=== PATIENT | female | born 1985 ===

== ENCOUNTER 2019-07-13 14:12 | Emergency (ER) | payer SELFPAY ==
--- NOTE | 2019-07-13 14:34 | Emergency Department Report ---
Blank Doc - Documentation Documentation: This is a 33-year-old female that presents with hallucinating and paranoid. D enies Si/HI. This initial assessment/diagnostic orders/clinical plan/treatment(s) is/are subject to change based on patient's health status, clinical progression and re- assessment by fellow clinical providers in the ED. Further treatment and workup at subsequent clinical providers discretion. Patient/guardians urged not to elope from the ED as their condition may be serious if not clinically assessed and managed. Initial orders include: 1- Patient sent to MAIN ED for further evaluation and treatment 2- university administrator was notified to have patient be brought back [facility]. 3- RN was notified to keep patient as close range and observation until room available 4- Patient presents with substantial risk of imminent harm to self, appears to be so unable to care for his/her own physical health and safety as to create an imminently life-endangering crisis, and has committed/expressed life endangering crisis to self. Due to this and other complaints, patient is put on psych hold.
[2019-07-13 15:44] LABS: Basophils % (Auto) 0.8 % (0.0-1.8); Eosinophils % (Auto) 0.5 % (0.0-4.3); Hematocrit 43.4 % (30.3-42.9); Hemoglobin 14.6 gm/dl (10.1-14.3); Lymphocytes # (Auto) 1.5 K/mm3 (1.2-5.4); Lymphocytes % (Auto) 23.2 % (13.4-35.0); Mean Corpuscular HGB Conc 34 % (30-34); Mean Corpuscular Volume 92 fl (79-97); Monocytes # (Auto) 0.6 K/mm3 (0.0-0.8); Platelet Count 304 K/mm3 (140-440); Red Blood Count 4.74 M/mm3 (3.65-5.03); Red Cell Distribution Width 13.5 % (13.2-15.2)
[2019-07-13 16:02] LABS: Alanine Aminotransferase 57 units/L (7-56); Albumin 4.9 g/dL (3.9-5); BUN/Creatinine Ratio 16; Blood Urea Nitrogen 11 mg/dL (7-17); Calcium 9.4 mg/dL (8.4-10.2); Hemolysis Index 44
[2019-07-13] MEDS ORDERED: ALPRAZolam 1 MG TAB PO ONE (20:03)
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
[2019-07-13 20:32] LABS: Bilirubin,Urine NEG (Negative); Blood,Urine SM (Negative); Color,Urine Yellow (Yellow); Urobilinogen,Urine < 2.0 mg/dL (<2.0)
[2019-07-13 20:42] LABS: Amphetamine Screen,Urine PRESUMPTIVE NEGATIVE; Benzodiazepines Screen,Urine PRESUMPTIVE NEGATIVE; Cannabinoid Screen,Urine PRESUMPTIVE NEGATIVE; Cocaine Screen,Urine PRESUMPTIVE NEGATIVE; Methadone Screen,Urine PRESUMPTIVE NEGATIVE; Opiate Screen,Urine PRESUMPTIVE NEGATIVE
[2019-07-13] MEDS ORDERED: cloNIDine 0.1 MG TAB PO ONE (20:58)
[2019-07-14] MEDS ORDERED: ALPRAZolam 1 MG TAB PO ONE (03:04)
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
[2019-07-14] MEDS ORDERED: ZIPRASIDONE MESYLATE 20 MG VIAL IM PRN (13:34)
[2019-07-14] MEDS ORDERED: EFFEXOR 150 MG PO SCH (13:45)
[2019-07-14] MEDS: QUEtiapine 25 MG TAB PO SCH ×2 (14:33→22:24)
[2019-07-14] MEDS ORDERED: DOXEPIN 10 MG CAP PO SCH (22:00)
[2019-07-14] MEDS: VENLAFAXINE XR 75 MG CAP PO SCH (22:27)
[2019-07-14] MEDS ORDERED: WATER FOR INJ Sterile (PF) 10 ML ONE (23:58)
[2019-07-15] MEDS: QUEtiapine 25 MG TAB PO SCH ×2 (10:26→22:30)
[2019-07-15] MEDS: VENLAFAXINE XR 75 MG CAP PO SCH ×2 (10:26→22:27)
--- NOTE | 2019-07-15 11:08 | Progress Note ---
Subjective - Reason for Consult Consult date: 07/15/19 Reason for consult: paranoia - Chief Complaint Chief complaint: The patient's medical record was reviewed and the patient's progress discussed with the nursing staff. The nurse note states the patient became agitated and increasingly more paranoid despite reorienting and attempting verbal de- escalation. The nurse caring for the patient today, states the patient has been ampted up and needed something to calm her down. During my interview today, the patient is standing in her room. She is dressed appropriately. She makes good eye contact. She smiles inappropriately. She is talkative. She appears anxious. She says she's "much better" that she "saw her family." The patient says "I'm afraid for my family's safety," when asked how was she feeling. She starts talking about Labor and delivery, saying "that's where I had my children." She says "I drove myself there when I came in." She then starts telling of her "grandfather drove to this country from [place]." The patient is raising up her shirt sleeve to show me her injection site. She says "the nurse wouldn't believe me. I was trying to tell them my family was in danger." She says "I then started saying God, God" She is raising her hands up as she's speaking. She then begins talking about never missing work and telling her coworker she needed a day off. She denies SI/HI or hallucinations of any kind. ROS: Constitutional: Negative for weight loss ENT: Negative for stridor Respiratory: Negative for cough or hemoptysis All other systems reviewed and are negative MENTAL STATUS General Appearance: Dressed appropriately Behavior: cooperative, good eye contact Mood: "much better, afraid" Affect: Smiles inappropriately Thought Process: flight of ideas Speech: Increased pace Suicidal Ideation: Denies Homicidal Ideation: Denies Hallucinations: Denies Delusions: Paranoia Insight and Judgment: Limited Memory/Cognition: Fair Diagnoses: Schizoaffective Disorder Plan Vistaril 25mg po BID for anxiety Increased Doxepin 25mg po qhs Increased Seroquel 50mg po BID Medical: Per primary Sitter: Defer to primary Disposition: The patient meets the requirement for acute hospitalization at this time. She may transfer to an acute psychiatric facility once medically cleared. The patient and her mother verbalize understanding and agreement of treatment plan and medications. Will continue to follow until the patient is transferred or her condition improves. Please call with any questions or concerns. Thank you for this consult. Mental Status Exam - Vital signs Last Vital Signs Temp 98.3 F 07/15/19 09:00 Pulse 110 H 07/15/19 09:00 Resp 18 07/15/19 09:00 BP 127/85 07/15/19 09:00 Pulse Ox 99 07/15/19 09:00
[2019-07-15] MEDS ORDERED: DOXEPIN 10 MG CAP PO SCH (11:24)
[2019-07-15] MEDS: hydrOXYzine PAMOATE 25 MG CAP PO SCH ×2 (12:34→22:34)
[2019-07-15] MEDS: DOXEPIN 25 MG CAP PO SCH (22:32)
[2019-07-16] MEDS: VENLAFAXINE XR 75 MG CAP PO SCH ×2 (10:12→22:05)
[2019-07-16] MEDS: hydrOXYzine PAMOATE 25 MG CAP PO SCH ×2 (10:12→21:46)
[2019-07-16] MEDS: QUEtiapine 25 MG TAB PO SCH (10:12)
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
[2019-07-16] MEDS: risperiDONE 1 MG TAB PO SCH ×2 (14:01→21:45)
[2019-07-16] MEDS: DOXEPIN 25 MG CAP PO SCH (22:03)
[2019-07-17] MEDS: risperiDONE 1 MG TAB PO SCH ×2 (10:33→22:31)
[2019-07-17] MEDS: VENLAFAXINE XR 75 MG CAP PO SCH ×2 (10:33→22:56)
[2019-07-17] MEDS: hydrOXYzine PAMOATE 25 MG CAP PO SCH ×2 (10:34→22:31)
--- NOTE | 2019-07-17 12:04 | Progress Note ---
Subjective - Reason for Consult Consult date: 07/17/19 Reason for consult: parania, delusional - Chief Complaint Chief complaint: The patient's medical record was reviewed and the patient's progress discussed with the nursing staff. The nurse note states the patient stated, "I have no sleep, because I don't trust anyone." The nurse caring for the patient states the patient has been more calm today and that she hasn't had to medicate her. During my interview today, the patient is standing in her room. She is peering out in the hallway. She's a/o x 3. She's smiling inappropriately. She is paranoid. She says she's doing "good." She says she "slept good." She then says, "I slept good because I knew the ina better than I know my ." When asking what ina she was referring to, the patient replied, "the one in my dreams." She starts talking about the [facility], in which she states she "gave to her children." The patient has been ruminating over this since her admission. She is showing me her Bible, in which she has several papers, wrappings, and notes shoved in it. She also has a sack where she is keeping all the snacks given to her in the hospital. She is pulling out items showing them to me. She states "just so you will believe me. They are giving me all of this stuff. I'm keeping it for proof. I don't trust people." She starts talking about being "from [place], people know me. They don't know me here. This is Cristela." She denies SI/HI, stating, "I never was." She denies hallucinations of any kind. ROS: Constitutional: Negative for weight loss ENT: Negative for stridor Respiratory: Negative for cough or hemoptysis All other systems reviewed and are negative MENTAL STATUS General Appearance: Dressed appropriately Behavior: cooperative, good eye contact Mood: "good" Affect: Smiles inappropriately Thought Process: flight of ideas, ruminative Speech: Increased pace Suicidal Ideation: Denies Homicidal Ideation: Denies Hallucinations: Denies Delusions: Paranoia Insight and Judgment: Impaired Memory/Cognition: Fair Diagnoses: Schizoaffective Disorder Plan Increased Risperidone 2mg po BID Cogentin 0.5mg po daily Medical: Per primary Sitter: Defer to primary Disposition: The patient meets the requirement for acute hospitalization at this time. She may transfer to an acute psychiatric facility once medically cleared. The patient and her mother verbalize understanding and agreement of treatment plan and medications. Will continue to follow until the patient is transferred or her condition improves. Please call with any questions or concerns. Thank you for this consult. Mental Status Exam - Vital signs Last Vital Signs Temp 98.3 F 07/17/19 07:47 Pulse 100 H 07/17/19 07:47 Resp 18 07/17/19 08:09 BP 136/98 07/17/19 07:47 Pulse Ox 98 07/17/19 08:09
[2019-07-17] MEDS: DOXEPIN 25 MG CAP PO SCH (22:32)
[2019-07-17] MEDS ORDERED: VENLAFAXINE 75 MG TAB PO ONE (22:37)
[2019-07-18] MEDS: BENZTROPINE 1 MG TAB PO SCH (09:36)
[2019-07-18] MEDS: hydrOXYzine PAMOATE 25 MG CAP PO SCH ×2 (09:39→22:00)
[2019-07-18] MEDS: risperiDONE 1 MG TAB PO SCH ×2 (09:40→21:58)
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
[2019-07-18] MEDS ORDERED: HALOPERIDOL LACTATE 5 MG/1 ML INJ IM ONE (12:49)
[2019-07-18] MEDS ORDERED: LORazepam 2 MG/ML VIAL IM ONE (13:00)
[2019-07-18] MEDS: DIVALPROEX DR 500 MG TAB PO SCH ×2 (13:44→20:20)
[2019-07-18] MEDS: VENLAFAXINE 75 MG TAB PO SCH (22:01)
[2019-07-18] MEDS: DOXEPIN 25 MG CAP PO SCH (22:02)
[2019-07-18] MEDS: clonazePAM 0.5 MG TAB PO SCH (22:49)
--- NOTE | 2019-07-19 09:45 | Cat Scan Report ---
CT HEAD WITHOUT CONTRAST INDICATION / CLINICAL INFORMATION: Acute psychosis. TECHNIQUE: All CT scans at this location are performed using CT dose reduction for ALARA by means of automated e xposure control. COMPARISON: None available. FINDINGS: HEMORRHAGE: No evidence of intracranial hemorrhage or extra-axial fluid collection. EXTRA-AXIAL SPACES: Cortical sulci, sylvian fissures and basilar cisterns have an unremarkable appear ance. VENTRICULAR SYSTEM: The ventricular system is of normal size and configuration. CEREBRAL PARENCHYMA: No areas of abnormal brain parenchymal attenuation are identified. There is no i ndication of recent infarction. MIDLINE SHIFT OR HERNIATION: There is no mass effect. CEREBELLUM / BRAINSTEM: Brainstem and cerebellum have an unremarkable appearance. INTRACRANIAL VESSELS:No abnormalities are identified on this noncontrast head CT. ORBITS: visualized portions of the orbits have an unremarkable appearance. SOFT TISSUES of HEAD: No significant abnormality. CALVARIUM: Evaluation of bone windows reveals no abnormalities. PARANASAL SINUSES / MASTOID AIR CELLS: Paranasal sinuses are free from inflammatory mucosal disease. Mastoid air cells are normally pneumatized. ADDITIONAL FINDINGS: None. IMPRESSION: 1. Normal head CT. Signer Name: Dean العراقي MD Signed: 07/19/2019 9:41 AM Workstation Name: [id number]
[2019-07-19] MEDS ORDERED: VENLAFAXINE XR 75 MG CAP PO SCH (10:00)
[2019-07-19] MEDS: DIVALPROEX DR 500 MG TAB PO SCH ×3 (10:10→20:01)
[2019-07-19] MEDS: BENZTROPINE 1 MG TAB PO SCH (10:10)
[2019-07-19] MEDS: VENLAFAXINE 75 MG TAB PO SCH (10:13)
[2019-07-19] MEDS: clonazePAM 0.5 MG TAB PO SCH ×2 (10:13→22:05)
[2019-07-19] MEDS: risperiDONE 1 MG TAB PO SCH ×2 (10:14→22:05)
[2019-07-19] MEDS: hydrOXYzine PAMOATE 25 MG CAP PO SCH ×2 (10:14→22:05)
--- NOTE | 2019-07-19 12:08 | Progress Note ---
Subjective - Reason for Consult Consult date: 07/19/19 Reason for consult: paranoia - Chief Complaint Chief complaint: The patient's medical record was reviewed and the patient's progress discussed with the nursing staff. The nurse note states the patient received awake, alert, and oriented, but confused regarding situation. Pt. currently denies pain, SI/HI or auditory/visual hallucinations. Pt independently ambulatory with steady gait. She is Calm and cooperative at present time. During my interview today, the patient is sitting in her room. She is a/o x 3. She is calm and cooperative. She seems somewhat subdued. The patient is not as suspicious. Her speech is slower. Her thought process is clearer. Her affect is restricted, and she makes fair eye contact. The patient verbalizes "feeling better." She says, "I don't feel afraid anymore. I think the person got locked up." She says, "I was told I would be in here maybe until Friday. But here it is Friday and I'm still here." I explained to the patient that she was not herself when she came and and feeling very suspicious. She says, "I'm better. I got two injections. I don't like shots. I was only trying to explain my situation." The patient states, "I spoke with my mom. I need to get back to my kids. She told me they have been asking for me." Mrs. Matta says she has "a 9 year old son and a 13y/o daughter." The patient denies hallucinations of any kind, when asked. Right before ending the interview, the patient states, "someone was trying to perform an exorcism in the next room. They were making faces." She then starts making noises and faces attempting to describe the faces she saw. I reminded the patient she was in the hospital. She looked slightly confused, and states, "I know, but it was an exorcism. You know like Emilee Davis." ROS: Constitutional: Negative for weight loss ENT: Negative for stridor Respiratory: cough All other systems reviewed and are negative MENTAL STATUS General Appearance: Dressed appropriately Behavior: calm, cooperative Mood: "feeling better" Affect: Restricted Thought Process: Goal directed Speech: Normal tone and pace Suicidal Ideation: Denies at present Homicidal Ideation: Denies Hallucinations: Visual Delusions: Paranoia Insight and Judgment: Impaired Memory/Cognition: Fair Diagnoses: Schizoaffective Disorder Plan Decreased [id number] po daily. Stopping this medication abruptly can result in withdrawal symptoms Medical: Per primary Sitter: Defer to primary Disposition: The patient meets the requirement for acute hospitalization at this time. She may transfer to an acute psychiatric facility once medically cleared. The patient and her mother verbalize understanding and agreement of treatment plan and medications. Will continue to follow until the patient is transferred or her condition improves. Please call with any questions or concerns. Thank you for this consult. Mental Status Exam - Vital signs Last Vital Signs Temp 97.4 F L 07/19/19 08:00 Pulse 79 07/19/19 08:00 Resp 18 07/19/19 08:00 BP 115/81 07/19/19 08:00 Pulse Ox 99 07/19/19 08:00
[2019-07-19] MEDS: DOXEPIN 25 MG CAP PO SCH (22:05)
[2019-07-20 08:16] VITALS: BP 103/80
[2019-07-20] MEDS: DIVALPROEX DR 500 MG TAB PO SCH (08:44)
[2019-07-20] MEDS ORDERED: VENLAFAXINE 75 MG TAB PO SCH (10:00)
[2019-07-20] MEDS: risperiDONE 1 MG TAB PO SCH (10:14)
[2019-07-20] MEDS: clonazePAM 0.5 MG TAB PO SCH (10:14)
[2019-07-20] MEDS: BENZTROPINE 1 MG TAB PO SCH (10:14)
[2019-07-20] MEDS: hydrOXYzine PAMOATE 25 MG CAP PO SCH (10:14)
== END 2019-07-20 11:14 ==
LOC: ED 14:12 → EEVIPCON 14:12 → ED 07-20 11:14
DX: F22 Delusional disorders (principal); F23 Brief psychotic disorder; F41.9 Anxiety disorder, unspecified; E11.9 Type 2 diabetes mellitus without complications; Z79.899 Other long term (current) drug therapy
CPT/HCPCS: 36415; 70450; 80053; 80307; 81001; 82962; 84703; 85025; 96372; 99285; J1630; J2060; J3486; 80320; G0480; Q0177